=== PATIENT | male | born 1975 | race Two or more races ===

== ENCOUNTER 2017-11-14 18:43 | Emergency (ER) | payer MEDICAID ==
[~2017-11-14] VITALS: Ht 165.1 cm; Wt 76.2 kg
[2017-11-14 19:10] VITALS: BP 104/64
[2017-11-14] MEDS ORDERED: COLACE100 MG ORAL (20:06)
[2017-11-14] MEDS ORDERED: ANUSOL-HC25 MG RECTAL (20:06)
[2017-11-14 21:00] VITALS: BP 104/64
--- NOTE | 2017-11-14 21:01 | Emergency Room Report ---
History of Present Illness General Chief Complaint: General Complaint Source: Patient Present Illness HPI 42-year-old male presents ED for evaluation area patient complaining of blood in his stool 2 days. Also complaining of lower abdominal pain. Denies any blood thinners. States pain is cramping, 8 out of 10, nonradiating. Denies fevers or chills. Denies chest pain shortness of breath. Denies nausea or vomiting. No other aggravating relieving factors. Denies any other associated symptoms Allergies: Coded Allergies: No Known Allergies (Unverified , 11/14/17) Patient History Past Medical History: asthma Past Surgical History: none Pertinent Family History: none Social History: Denies: smoking, alcohol use, drug use Immunizations: UTD Reviewed Nursing Documentation: PMH: Agreed; PSxH: Agreed Nursing Documentation-PMH Hx Asthma: Yes Review of Systems All Other Systems: negative except mentioned in HPI Physical Exam Vital Signs Date Time Temp Pulse Resp B/P (MAP) Pulse Ox O2 Delivery O2 Flow Rate FiO2 11/14/17 18:56 98.4 82 15 104/64 98 Room Air 98.4 Sp02 EP Interpretation: reviewed, normal General Appearance: no apparent distress, alert, GCS 15, non-toxic Head: normocephalic, atraumatic Eyes: bilateral eye normal inspection, bilateral eye PERRL ENT: hearing grossly normal, normal pharynx, no angioedema, normal voice Neck: full range of motion, supple/symm/no masses Respiratory: chest non-tender, lungs clear, normal breath sounds, speaking full sentences Cardiovascular #1: regular rate, rhythm, no edema Cardiovascular #2: 2+ carotid (R), 2+ carotid (L), 2+ radial (R), 2+ radial (L) , 2+ dorsalis pedis (R), 2+ dorsalis pedis (L) Gastrointestinal: normal bowel sounds, non tender, soft, non-distended, no guarding, no rebound Rectal: other - rectal fullness. no gross blood Genitourinary: normal inspection, no CVA tenderness Musculoskeletal: back normal, gait/station normal, normal range of motion, non- tender Neurologic: alert, oriented x3, responsive, motor strength/tone normal, sensory intact, speech normal Psychiatric: judgement/insight normal, memory normal, mood/affect normal, no suicidal/homicidal ideation Reflexes: 3+ bicep (R), 3+ bicep (L), 3+ tricep (R), 3+ tricep (L), 3+ knee (R) , 3+ knee (L) Skin: normal color, no rash, warm/dry, well hydrated Lymphatic: no adenopathy Medical Decision Making Diagnostic Impression: Primary Impression: Hemorrhoids Qualified Codes: K64.9 - Unspecified hemorrhoids Additional Impression: Constipation Qualified Codes: K59.00 - Constipation, unspecified ER Course Hospital Course 42 yo M presents to ED c/o blood in stool. pain during defecation Differential diagnoses include: internal hemorrhoids, external hemorrhoids, anal fissure, constipation Clinical course Patient placed on stretcher in ED. After initial history physical exam reveals a male in no acute distress. Upon rectal exam there is fullness on rectal exam with tenderness consistent with an internal hemorrhoid. no gross blood on exam KUB shows fecal impaction. Consistent with hemorrhoids. Discussed findings with patient. Diagnosis - constipation, hemorrhoids Stable and discharged to home with prescription for Anusol suppository, Colace. Instructed to take warm soaks. Patient instructed to followup with PMD. Patient instructed to return to ED if symptoms recur or worsen Other X-Ray Diagnostic Results Other X-Ray Diagnostic Results : X-Ray ordered: KUB # of Views/Limited Vs Complete: 1 View Indication: Pain EP Interpretation: Yes Interpretation: nonspecific bowel gas, no sbo, other - fecal impaction Impression: Other - constipation Electronically Signed by: Electronically signed by Yariel Kaufman MD Last Vital Signs Date Time Temp Pulse Resp B/P (MAP) Pulse Ox O2 Delivery O2 Flow Rate FiO2 11/14/17 19:10 98.4 15 104/64 98 Room Air 98.4 11/14/17 18:56 82 Status: improved Disposition: HOME, SELF-CARE Condition: Stable Scripts Docusate Sodium* (COLACE*) 100 Mg Capsule 100 MG ORAL THREE TIMES A DAY, #30 CAP Prov: Yariel Kaufman MD 11/14/17 Hydrocortisone Acetate* (ANUSOL-HC*) 25 Mg Supp.rect 1 SUPP RECTAL TWICE A DAY, #10 SUPP Prov: Yariel Kaufman MD 11/14/17 Patient Instructions: Hemorrhoids, [id number] Yariel Kaufman MD Nov 14, 2017 21:01
--- NOTE | 2017-11-15 11:53 | Diagnostic Imaging Report ---
Indication: Abdominal pain Technique: Supine view of the abdomen Comparison: none Findings: Bowel gas pattern is unremarkable. No unusual masses or calcifications. Bones are unremarkable Impression: Negative
== END 2017-11-14 21:00 | disposition home or self-care (01) ==
LOC: EMR 19:20
DX: K64.9 Unspecified hemorrhoids (principal); K59.00 Constipation, unspecified; J45.909 Unspecified asthma, uncomplicated
CPT/HCPCS: 74018; 99284

== ENCOUNTER 2018-12-31 23:30 | Emergency (ER) | payer MEDICAID ==
[~2018-12-31] VITALS: Ht 165.1 cm; Wt 72.6 kg
[~2018-12-31 23:30] MED LIST: ANUSOL-HC25 MG RECTAL; COLACE100 MG ORAL
[2019-01-01] MEDS ORDERED: Morphine Sulfate 4mg/ml Inj (IV USE ONLY) IVP ONE
--- NOTE | 2019-01-01 | NUR ---
ED Nurse Note: pt walked in c/o abd pain and n/v since , pt reports pain 10/10 with tenderness. Active BS, denies diarrhea at this time but reports pain radiating to back, vss, will cont monitor.
--- NOTE | 2019-01-01 00:17 | Emergency Room Report ---
History of Present Illness General Chief Complaint: Abdominal Pain Source: Patient Present Illness [facility] This a 44-year-old male with history of asthma. Presents with chief complaint abdominal pain. Onset for last 3 days. Pain is localized to the periumbilical and right lower quadrant area. Pain is sharp. 8 out of 10. Worse with eating. Has nausea and vomiting. Decreased appetite. No fever chills. No diarrhea. No trauma. Allergies: Coded Allergies: No Known Allergies (Unverified , 11/14/17) Patient History Past Medical History: see triage record, old chart reviewed, asthma Past Surgical History: none Pertinent Family History: none Social History: Denies: smoking Immunizations: other Reviewed Nursing Documentation: PMH: Agreed; PSxH: Agreed Nursing Documentation-PMH Past Medical History: No History, Except For Hx Asthma: Yes Review of Systems Eye: Denies: eye pain, blurred vision ENT: Denies: ear pain, nose congestion, throat swelling Respiratory: Denies: cough, shortness of breath Cardiovascular: Denies: chest pain, palpitations Gastrointestinal: Reports: abdominal pain, nausea, vomiting; Denies: diarrhea Musculoskeletal: Denies: back pain, joint pain Skin: Denies: rash Neurological: Denies: headache, numbness Endocrine: Denies: increased thirst, increased urine Hematologic/Lymphatic: Denies: easy bruising All Other Systems: negative except mentioned in HPI Physical Exam Vital Signs Date Time Temp Pulse Resp B/P (MAP) Pulse Ox O2 Delivery O2 Flow Rate FiO2 12/31/18 23:40 98.1 71 16 126/79 (95) 99 Room Air Vitals normal Sp02 EP Interpretation: reviewed, normal General Appearance: well appearing, no apparent distress, alert Head: normocephalic, atraumatic Eyes: bilateral eye PERRL, bilateral eye EOMI ENT: hearing grossly normal, normal pharynx Neck: full range of motion, supple, no meningismus Respiratory: chest non-tender, lungs clear, normal breath sounds Cardiovascular #1: regular rate, rhythm, no murmur Gastrointestinal: normal bowel sounds, no mass, no organomegaly, no bruit, non- distended, tenderness - Right lower quadrant Musculoskeletal: back normal, gait/station normal, normal range of motion Psychiatric: mood/affect normal Medical Decision Making Diagnostic Impression: Primary Impression: Abdominal pain Qualified Codes: R10.84 - Generalized abdominal pain ER Course Patient presents with abdominal pain. CT scan show moderately thickened stomach wall. Also diffusely fluid-filled small bowel correlate with gastroenteritis. Because symptoms and ongoing for 3 days, will put on antibiotics. No evidence of acute abdomen or obstruction. No evidence of appendicitis. Last Vital Signs Date Time Temp Pulse Resp B/P (MAP) Pulse Ox O2 Delivery O2 Flow Rate FiO2 12/31/18 23:40 98.1 71 16 126/79 (95) 99 Room Air Status: improved Disposition: HOME, SELF-CARE Condition: Stable Scripts Ibuprofen* (MOTRIN*) 600 Mg Tablet 600 MG ORAL THREE TIMES A DAY, #30 TAB 0 Refills Prov: Gino Quintana MD 01/01/19 Metronidazole* (FLAGYL*) 500 Mg Tablet 500 MG ORAL BID, #14 TAB Prov: Gino Quintana MD 01/01/19 Ciprofloxacin Hcl* (CIPROFLOXACIN HCL*) 500 Mg Tablet 500 MG ORAL Q12H, #14 TAB 0 Refills Prov: Gino Quintana MD 01/01/19 Patient Instructions: Abdominal Pain, Adult Additional Instructions: Follow-up with your doctor in 2 to 3 days for recheck. Return if worse. Gino Quintana MD Jan 01, 2019 00:17
[2019-01-01 00:24] LABS: BASOPHILS % (AUTO) 0.7 % (0.0-2.0); EOSINOPHILS % (AUTO) 1.1 % (0.0-3.0); HEMATOCRIT 33.4 % (42.0-52.0); HEMOGLOBIN 9.9 G/DL (14.2-18.0); MEAN CORPUSCULAR VOLUME 64 FL (80-99); MONOCYTES % (AUTO) 6.6 % (1.0-10.0); NEUTROPHILS % (AUTO) 47.5 % (45.0-75.0); PLATELET COUNT 238 K/UL (150-450); RED BLOOD COUNT 5.22 M/UL (4.70-6.10); WHITE BLOOD COUNT 5.8 K/UL (4.8-10.8)
--- NOTE | 2019-01-01 00:32 | Diagnostic Imaging Report ---
EXAM: CT Abdomen and Pelvis Without Intravenous Contrast CLINICAL HISTORY: ABD PAIN TECHNIQUE: Axial computed tomography images of the abdomen and pelvis without intravenous contrast. CTDI is 21 mGy and DLP is 1144 mGy-cm. One or more of the following dose reduction techniques were used: automated exposure control, adjustment of the mA and/or kV according to patient size, use of iterative reconstruction technique. COMPARISON: 11/14/17 x-ray FINDINGS: Lung bases: Some foci of air within the right ventricle. ABDOMEN: Liver: Unremarkable. Gallbladder and bile ducts: Unremarkable. Pancreas: No ductal dilation. Spleen: Unremarkable. Adrenals: Unremarkable. Kidneys and ureters: No obstructing stones. No hydronephrosis. Stomach and bowel: No bowel obstruction. Colonic diverticulosis. Diffusely fluid-filled small bowel and moderately thickened stomach wall. PELVIS: Appendix: No appendicitis. Bladder: No stones. Reproductive: Unremarkable. ABDOMEN and PELVIS: Intraperitoneal space: Unremarkable. Bones/joints: No acute fractures. Soft tissues: Unremarkable. Vasculature: No abdominal aortic aneurysm. Lymph nodes: No enlarged lymph nodes. IMPRESSION: 1. Moderately thickened stomach wall, correlate with gastritis versus underdistention. 2. Diffusely fluid-filled small bowel, correlate with gastroenteritis. 3. There is some air within the right ventricle, likely from iatrogenic injection. Unknown clinical significance.
--- NOTE | 2019-01-01 00:45 | NUR ---
ED Nurse Note: pt returned from CT, vss, reports pain is better with medication, will cont montior.
[2019-01-01 00:46] VITALS: BP 118/56
[2019-01-01 00:50] LABS: ANION GAP 8 mmol/L (5-15); BLOOD UREA NITROGEN 12 mg/dL (7-18); CALCIUM 8.9 MG/DL (8.5-10.1); CARBON DIOXIDE 27 MMOL/L (21-32); CHLORIDE 104 MMOL/L (98-107); CREATININE 1.1 MG/DL (0.55-1.30); POTASSIUM 3.5 MMOL/L (3.5-5.1); SODIUM 139 MMOL/L (136-145)
[2019-01-01 00:54] LABS: ALANINE AMINOTRANSFERASE 29 U/L (12-78); ALBUMIN 3.7 G/DL (3.4-5.0); ALBUMIN/GLOBULIN RATIO 0.9 (1.0-2.7); ALKALINE PHOSPHATASE 107 U/L (46-116); ASPARTATE AMINO TRANSFERASE 28 U/L (15-37); BILIRUBIN,TOTAL 0.4 MG/DL (0.2-1.0)
[2019-01-01] MEDS ORDERED: METRONIDAZOLE500 MG ORAL (00:59)
[2019-01-01] MEDS ORDERED: IBUPROFEN600 MG ORAL (00:59)
[2019-01-01] MEDS ORDERED: CIPROFLOXACIN500 M2 ORAL (00:59)
--- NOTE | 2019-01-01 01:13 | NUR ---
ED Nurse Note: pt cleared to be d/c per ERMD, pt discharge and aftercare instruction provided w/ prescription, pt education done via discussion and handout, pt advised to follow up with pcp or return to ed if changes in condition, vss, ambulatory w/ steady gait, left w/ all belongings, iv d/c and id band removed, pt accompanied by .
[2019-01-01 01:14] VITALS: BP 133/57
== END 2019-01-01 01:14 | disposition home or self-care (01) ==
LOC: EMR 01-01 00:30
DX: R10.84 Generalized abdominal pain (principal); R10.31 Right lower quadrant pain; R11.2 Nausea with vomiting, unspecified
CPT/HCPCS: 36415; 74176; 80053; 83690; 85025; 96361; 96374; 96375; 99284; J2270; J2405

== ENCOUNTER 2019-01-03 00:02 | Emergency (ER) | payer MEDICAID ==
[~2019-01-03] VITALS: Ht 152.4 cm; Wt 70.3 kg
[~2019-01-03 00:02] MED LIST changes: +CIPROFLOXACIN500 M2 ORAL; +IBUPROFEN600 MG ORAL; +METRONIDAZOLE500 MG ORAL
--- NOTE | 2019-01-03 00:15 | NUR ---
ED Nurse Note: IV ACCESS ESTABLISHED. BLOOD AND URINE COLLECTED; SENT DOWN TO LAB.
--- NOTE | 2019-01-03 00:20 | NUR ---
ED Nurse Note: Recieved pt from home, pt is actively having emesis, pt is here for abdominal pain with nausea and vomiting intermittently for past week, pt was seen here on wednesday, d/c to home and not aware of diagnosis, pt has pain at 10/10, pt appears very un-comfortable, immediately gowned and placed on cardiac monitoring, iv line and labs done by philip feldman, pt speaks only spanishm, daughter at bedside to assist with translation.
[2019-01-03] MEDS ORDERED: DiphenhydrAMINE 50mg/ml Inj IVP ONE (00:30)
[2019-01-03] MEDS ORDERED: Metoclopramide 10mg/2ml Inj IVP ONE (00:30)
[2019-01-03] MEDS ORDERED: Morphine Sulfate 4mg/ml Inj (IV USE ONLY) IVP ONE (00:30)
[2019-01-03 00:51] LABS: BASOPHILS % (AUTO) 1.2 % (0.0-2.0); EOSINOPHILS % (AUTO) 0.8 % (0.0-3.0); HEMATOCRIT 36.7 % (42.0-52.0); HEMOGLOBIN 10.8 G/DL (14.2-18.0); LYMPHOCYTES % (AUTO) 33.8 % (20.0-45.0); MEAN CORPUSCULAR VOLUME 64 FL (80-99); MONOCYTES % (AUTO) 8.5 % (1.0-10.0); NEUTROPHILS % (AUTO) 55.8 % (45.0-75.0); PLATELET COUNT 208 K/UL (150-450); RED BLOOD COUNT 5.75 M/UL (4.70-6.10); RED CELL DISTRIBUTION WIDTH 18.8 % (11.6-14.8); WHITE BLOOD COUNT 6.2 K/UL (4.8-10.8)
[2019-01-03 01:00] VITALS: BP 144/85
[2019-01-03 01:01] LABS: ANION GAP 11 mmol/L (5-15); BLOOD UREA NITROGEN 9 mg/dL (7-18); CALCIUM 8.9 MG/DL (8.5-10.1); CARBON DIOXIDE 26 MMOL/L (21-32); CHLORIDE 91 MMOL/L (98-107); CREATININE 1.1 MG/DL (0.55-1.30); POTASSIUM 3.1 MMOL/L (3.5-5.1); SODIUM 128 MMOL/L (136-145)
[2019-01-03 01:11] LABS: ALANINE AMINOTRANSFERASE 60 U/L (12-78); ALKALINE PHOSPHATASE 107 U/L (46-116); ASPARTATE AMINO TRANSFERASE 59 U/L (15-37); BILIRUBIN,TOTAL 1.3 MG/DL (0.2-1.0)
[2019-01-03 01:19] LABS: BILIRUBIN,DIRECT 0.3 MG/DL (0.0-0.3)
[2019-01-03 02:00] VITALS: BP 148/79
--- NOTE | 2019-01-03 02:05 | NUR ---
ED Nurse Note: patient sleeping in bed with nad. vss. family at bedside.
--- NOTE | 2019-01-03 02:08 | Emergency Room Report ---
History of Present Illness General Chief Complaint: Abdominal Pain Source: Patient Present Illness HPI Patient presents with complaints of continued mid epigastric abdominal pain Patient was here recently with similar complaints reports that the discomfort has now returned he was also having hiccups he feels that this actually worsened his symptoms Denies any vomiting or diarrhea denies any chest pain or shortness of breath denies any fevers Pain is epigastric and also goes to the mid abdominal area 5 out of 10 Allergies: Coded Allergies: No Known Allergies (Unverified , 11/14/17) Patient History Past Medical History: see triage record Pertinent Family History: none Reviewed Nursing Documentation: PMH: Agreed; PSxH: Agreed Nursing Documentation-PMH Past Medical History: No Stated History Hx Asthma: Yes Review of Systems All Other Systems: negative except mentioned in HPI Physical Exam Vital Signs Date Time Temp Pulse Resp B/P (MAP) Pulse Ox O2 Delivery O2 Flow Rate FiO2 01/03/19 00:08 98.4 80 14 135/93 (107) 100 Room Air Sp02 EP Interpretation: reviewed, normal General Appearance: well appearing, no apparent distress Head: normocephalic, atraumatic Eyes: bilateral eye PERRL, bilateral eye EOMI ENT: hearing grossly normal, normal pharynx, TMs + canals normal, uvula midline Neck: full range of motion, supple, no meningismus, no bony tend Respiratory: lungs clear, normal breath sounds, no rhonchi, no respiratory distress, no retraction, no accessory muscle use Cardiovascular #1: normal peripheral pulses, regular rate, rhythm, no edema, no gallop, no JVD, no murmur Gastrointestinal: normal bowel sounds, non tender, soft, no mass, no organomegaly, non-distended, no guarding, no hernia, no pulsatile mass, no rebound Genitourinary: no CVA tenderness Musculoskeletal: normal inspection Neurologic: oriented x3, responsive, bleach chlorinator III-XII nml as tested, motor strength/ tone normal, sensory intact Psychiatric: mood/affect normal Skin: no rash Lymphatic: normal inspection, no adenopathy Medical Decision Making Diagnostic Impression: Primary Impression: Abdominal pain ER Course With the history exam and presentation, multiple differentials considered, including but not limited to appendicitis, gastritis, cholecystitis, diverticulitis After further questioning patient reports that initially this started last week after drinking a tequila type drink He has been doing somewhat better until last night when the discomfort again started patient CT just from yesterday does not show any acute Emergent pathology there was some thickening of the gastric wall patient's blood work was repeated and states Appropriate patient does not have any vomiting of blood or dark stools After further intervention feels better and is stable for close outpatient follow-up Labs Test 01/03/19 00:15 White Blood Count 6.2 K/UL (4.8-10.8) Red Blood Count 5.75 M/UL (4.70-6.10) Hemoglobin 10.8 G/DL (14.2-18.0) Hematocrit 36.7 % (42.0-52.0) Mean Corpuscular Volume 64 FL (80-99) Mean Corpuscular Hemoglobin 18.8 PG (27.0-31.0) Mean Corpuscular Hemoglobin Concent 29.5 G/DL (32.0-36.0) Red Cell Distribution Width 18.8 % (11.6-14.8) Platelet Count 208 K/UL (150-450) Mean Platelet Volume 5.6 FL (6.5-10.1) Neutrophils (%) (Auto) 55.8 % (45.0-75.0) Lymphocytes (%) (Auto) 33.8 % (20.0-45.0) Monocytes (%) (Auto) 8.5 % (1.0-10.0) Eosinophils (%) (Auto) 0.8 % (0.0-3.0) Basophils (%) (Auto) 1.2 % (0.0-2.0) Sodium Level 128 MMOL/L (136-145) Potassium Level 3.1 MMOL/L (3.5-5.1) Chloride Level 91 MMOL/L (98-107) Carbon Dioxide Level 26 MMOL/L (21-32) Anion Gap 11 mmol/L (5-15) Blood Urea Nitrogen 9 mg/dL (7-18) Creatinine 1.1 MG/DL (0.55-1.30) Estimat Glomerular Filtration Rate > 60 mL/min (>60) Glucose Level 132 MG/DL (74-106) Calcium Level 8.9 MG/DL (8.5-10.1) Total Bilirubin 1.3 MG/DL (0.2-1.0) Direct Bilirubin 0.3 MG/DL (0.0-0.3) Aspartate Amino Transf (AST/SGOT) 59 U/L (15-37) Alanine Aminotransferase (ALT/SGPT) 60 U/L (12-78) Alkaline Phosphatase 107 U/L (46-116) Total Protein 8.2 G/DL (6.4-8.2) Albumin 4.0 G/DL (3.4-5.0) Globulin 4.2 g/dL Albumin/Globulin Ratio 1.0 (1.0-2.7) Lipase 226 U/L (73-393) CT/MRI/US Diagnostic Results CT/MRI/US Diagnostic Results : Impression CT abdomen pelvis from 12/31/2018IMPRESSION: 1. Moderately thickened stomach wall, correlate with gastritis versus underdistention. 2. Diffusely fluid-filled small bowel, correlate with gastroenteritis. 3. There is some air within the right ventricle, likely from iatrogenic injection. Unknown clinical significance. Last Vital Signs Date Time Temp Pulse Resp B/P (MAP) Pulse Ox O2 Delivery O2 Flow Rate FiO2 01/03/19 01:17 98.5 01/03/19 00:08 80 14 135/93 (107) 100 Room Air Status: improved Disposition: HOME, SELF-CARE Condition: Improved Scripts Mag Hydrox/Al Hydrox/Simeth (MAALOX MAXIMUM STRENGTH SUSP) 355 Ml Oral.susp 10 ML PO DAILY for 7 Days, ML Prov: Caroline Hyman DO 01/03/19 Famotidine (PEPCID AC) 20 Mg Tablet 20 MG PO DAILY, #20 TAB Prov: Caroline Hyman DO 01/03/19 Referrals: NOT CHOSEN IPA/MD,REFERRING (PCP) Additional Instructions: Patient is provided with the discharge instructions notified to follow up with primary doctor in the next 2-3 days otherwise return to the er with any worsening symptoms. Please note that this report is being documented using [employer] technology. This can lead to erroneous entry secondary to incorrect interpretation by the dictating instrument. Caroline Hyman DO Jan 03, 2019 02:08
[2019-01-03 03:00] VITALS: BP 145/72
[2019-01-03] MEDS ORDERED: Dicyclomine HCl 10mg/5ml oral soln ORAL ONE (03:00)
[2019-01-03] MEDS ORDERED: Mylanta II UD 30ml ORAL ONE (03:00)
--- NOTE | 2019-01-03 03:00 | NUR ---
ED Nurse Note: Pt continues to rest in bed, pt asking for more pain meds stating pain has returned to 9/10 and nausea, md aware, v/s wnl, iv site patent, will continue to monitor and re-medicate as ordered, monitoring, for effectiveness or any chagnes while waiting for pt disposition and results.
[2019-01-03] MEDS ORDERED: PEPCID AC20 M2 PO (03:12)
[2019-01-03] MEDS ORDERED: MAALOX MAXIMUM355 M1 PO (03:12)
--- NOTE | 2019-01-03 03:30 | NUR ---
ER DISCHARGE NOTE: Patient is cleared to be discharged per ERMD, pt is aox4, on room air, with stable vital signs. pt was given dc and prescription instructions, pt was able to verbalize understanding, pt id band and iv site removed without complications. pt is able to ambulate with steady gait. pt took all belongings. with daughter to drive, pt given referrals for f/u also.
[2019-01-03 03:40] VITALS: BP 145/72
== END 2019-01-03 03:40 | disposition home or self-care (01) ==
LOC: EMR 00:22
DX: R10.13 Epigastric pain (principal); R06.6 Hiccough
CPT/HCPCS: 36415; 80053; 82248; 83690; 85025; 96374; 96376; 99284; J1200; J2270; J2765; S0028